=== PATIENT | male | born 1985 | race Caucasian/White ===

== ENCOUNTER 2018-05-23 12:03 | Observation (INO) | payer OTHER ==
[2018-05-23 12:19] LABS: #Lymphocytes 1.9 thou/uL (1.20-3.40); #Monocytes 0.2 thou/uL (0.11-0.59); #Neutrophils 6.4 thou/uL (1.40-6.50); %Basophils 0.3 % (0.0-1.0); %Eosinophils 0.5 % (0.0-10.0); %Lymphocytes 22.6 % (21.0-51.0); %Monocytes 1.9 % (0.0-10.0); %Neutrophils 74.6 % (42.0-75.0); Hemoglobin 14.6 g/dL (14.0-18.0); Mean Corpuscular HGB CONC 35.1 g/dL (32.0-36.0); Mean Corpuscular Hemoglobin 31.4 pg (27.0-31.0); Mean Corpuscular Volume 89.5 fL (78.0-98.0); Mean Platelet Volume 6.6 fL (7.4-10.4); Platelet Count 203 thou/uL (130-400); RBC Distribution Width 11.8 % (11.5-14.5); Red Blood Cell (RBC) Count 4.65 mill/uL (4.70-6.10); White Blood Cell (WBC) Count 8.5 thou/uL (4.8-10.8)
[2018-05-23 12:24] LABS: INR-International Normal Ratio 1.1; Prothrombin Time 13.9 SEC (12.0-14.7)
[2018-05-23 12:31] LABS: ALT (SGPT) 25 U/L (8-55); AST (SGOT) 22 U/L (5-34); Albumin 4.6 g/dL (3.5-5.0); Alkaline Phosphatase 56 U/L (40-150); Anion Gap 15 mmol/L (10-20); BUN (Urea Nitrogen) 22 mg/dL (8.9-20.6); Bilirubin, Total 0.9 mg/dL (0.2-1.2); Calc. Creatinine Clearance 0 mL/min (70-130); Calcium 9.1 mg/dL (7.8-10.44); Carbon Dioxide 16 mmol/L (22-29); Chloride 107 mmol/L (98-107); Estimated GFR-MDRD 67; Globulin 2.8 g/dL (2.4-3.5); Glucose 141 mg/dL (70-105); Potassium 3.4 mmol/L (3.5-5.1); Protein, Total 7.4 g/dL (6.0-8.3); Sodium 135 mmol/L (136-145)
[2018-05-23 12:35] LABS: CKMB 1.5 ng/mL (0-6.6); Troponin I Less than 0.010 ng/mL (< 0.028)
[2018-05-23 12:51] LABS: Acetaminophen Less than 6.0 mcg/mL (10.0-30.0); Alcohol Less than 10 mg/dL (Less than 10); Salicylate Less than 8.0 mg/dL (15.0-30.0)
[2018-05-23 12:57] LABS: Bilirubin Negative (Negative); Blood, Urine Negative (Negative); Clarity CLEAR (Clear); Glucose, Urine (Dipstick) Negative (Negative); Leukocyte Negative (Negative); Nitrite Negative (Negative); Protein, Urine (Dipstick) Negative (Neg-Trace); Specific Gravity, Urine 1.006 (1.002-1.036); Urobilinogen 0.2 mg/dL (0.2-1.0); pH, Urine 7.5 (5.0-9.0)
[2018-05-23 13:08] LABS: Amphetamine Not Detected (NotDetected); Barbiturates Screen Not Detected (NotDetected); Benzodiazepine Screen Not Detected (NotDetected); Cocaine Metabolite Screen Not Detected (NotDetected); Medtox Control Line Valid? VALID (VALID); Medtox Reader # READER 1; Methadone Not Detected (NotDetected); Methamphetamine Not Detected (NotDetected); Opiate Screen Not Detected (NotDetected); Oxycodone Screen Not Detected (NotDetected); Phencyclidine (PCP) Not Detected (NotDetected); THC/Cannabinoid Screen Not Detected (NotDetected); Tricyclic Screen Not Detected (NotDetected)
[2018-05-23] MEDS ORDERED: Metoclopramide HCl 10 MG/2 ML VIAL ONE (13:08)
--- NOTE | 2018-05-23 13:23 | CT ---
CT OF THE BRAIN WITHOUT CONTRAST: Date: 05/23/18 INDICATION: History of stroke. Patient last seen normal 2 hours ago, now with contusion, occasional ataxia, and i nappropriate speech responses. COMPARISON: None. FINDINGS: No acute infarct, hemorrhage, or hydrocephalus is present. Septum pellucidum and third ventricle are midline. Skull and extracranial soft tissues are unremarkable. IMPRESSION: No acute abnormality. Findings called to Dr. Camacho at 1212 hours on 05/23/18. CODE CR. POS: DANISHA
[2018-05-23] MEDS ORDERED: cloNIDine 0.1 MG TAB PO PRN (14:18)
[2018-05-23] MEDS ORDERED: Eucerin (Mineral Oil/Petrolatum,White) 30 gm Jar TOP PRN (14:18)
[2018-05-23] MEDS ORDERED: Zolpidem Tartrate 5 MG TAB PO PRN (14:18)
[2018-05-23] MEDS ORDERED: Sodium Chloride 0.65% Nasal 44 ML BOT EA NARE PRN (14:18)
[2018-05-23] MEDS ORDERED: Loratadine 10 MG TAB PO PRN (14:18)
[2018-05-23] MEDS ORDERED: hydrALAZINE 20 MG/ML VIAL SLOW IVP PRN (14:18)
[2018-05-23] MEDS ORDERED: Milk Of Magnesia 30 ML UDCUP PO PRN (14:18)
[2018-05-23] MEDS ORDERED: Ondansetron HCl/PF 4 MG/2 ML Vial IVP PRN (14:18)
[2018-05-23] MEDS ORDERED: Diabetic Tussin 200 MG/10 ML UDCUP PO PRN (14:18)
[2018-05-23] MEDS ORDERED: Ondansetron ODT 4 MG TAB PO PRN (14:18)
[2018-05-23] MEDS ORDERED: Senokot 8.6 MG TAB PO PRN (14:18)
[2018-05-23] MEDS ORDERED: Mag-Al 1200 mg/1200 mg/30 ML UDCUP PO PRN (14:18)
[2018-05-23] MEDS ORDERED: Loperamide HCl 2 MG CAP PO PRN (14:18)
[2018-05-23] MEDS ORDERED: Artificial Tear Sol 15 ML BOT EA EYE PRN (14:18)
[2018-05-23] MEDS ORDERED: Acetaminophen 325 MG TAB PO PRN (14:18)
[2018-05-23] MEDS ORDERED: Chloraseptic Spray 180 ml Bottle PO PRN (14:18)
--- NOTE | 2018-05-23 14:49 | HP ---
DATE OF ADMISSION: 05/23/2018 PRIMARY CARE PHYSICIAN: [facility] call admission. REASON FOR ADMISSION: Altered mental status. HISTORY OF PRESENT ILLNESS: This is a 32-year-old male who was at work. Around 10:00 this morning, the patient was having frontal headache. Per the patient, it was throbbing in nature. The patient was confused at the same time. As per coworker, the patient was repeating words at that time and he was not appropriately responding to questions. Per them, he was confused. He was repeating things and his communication was not making any sense. He was not able to use his phone, he was not recognizing people. He also reported tingling , numbness in his hand. He did not have any motor weakness. As per report, the patient had more pronounced facial droop on the right side. He did not have any nausea or vomiting. He did not have any double vision or blurred vision. The patient was not having any recall of that event. The patient was brought to ER with a stroke protocol. CT brain was negative for any acute intracranial process. The patient was also responding well in the emergency room. As per coworkers at workplace, the patient was taking deep breath and his pupils were dilated. The patient was very slow to recognize people including his . He was also not able to tell his date of . He was also having difficulty recognizing coworkers. Whenever they were trying to do NIH scale in the emergency room, he was not able to respond very well. Initially, NIH scale was 6. The patient did not have any motor weakness. He was given Reglan and IV fluid. At this point, we are admitting this patient on stroke floor for further evaluation. Family member reports that in March when they went to [place], at that time, he had first time headache in his life with a fever and that went away within 48 hours. At that time, they did not go to doctor's office. Before and after, he did not have any headache up until today. He never had this type of problem of confusion in past and he does not have any psychiatric problem. PAST MEDICAL HISTORY: Reviewed and negative. PAST PSYCHIATRIC HISTORY: Reviewed and negative. PAST SURGICAL HISTORY: Appendicectomy. SOCIAL HISTORY: The patient is and lives at home with his . He drinks alcohol socially. He denies any smoking. He denies any other illicit drug abuse. FAMILY HISTORY: No strong family history of premature coronary artery disease, stroke or cancer. ALLERGIES: No known drug allergy. CURRENT HOME MEDICATIONS: The patient is not taking any prescribed or non- prescribed medication. EMERGENCY ROOM COURSE: The patient was given Reglan and IV fluid. REVIEW OF SYSTEMS: The following complete review of systems was negative, unless otherwise mentioned in the HPI or below: Constitutional: Weight loss or gain, ability to conduct usual activities. Skin: Rash, itching. Eyes: Double vision, pain. ENT/Mouth: Nose bleeding, neck stiffness, pain, tenderness. Cardiovascular: Palpitations, dyspnea on exertion, orthopnea. Respiratory: Shortness of breath, wheezing, cough, hemoptysis, fever or night sweats. Gastrointestinal: Poor appetite, abdominal pain, heartburn, nausea, vomiting, constipation, or diarrhea. Genitourinary: Urgency, frequency, dysuria, nocturia. Musculoskeletal: Pain, swelling. Neurologic/Psychiatric: Anxiety, depression. Allergy/Immunologic: Skin rash, bleeding tendency. Please see my HPI for pertinent positive and negative. All other review of systems reviewed and negative except as mentioned in the HPI. PHYSICAL EXAMINATION: VITAL SIGNS: On arrival, blood pressure 141/83, pulse 105, respiratory rate 16 , temperature 97.8, saturation 100% on room air. Weight 88 kilograms. GENERAL: The patient is currently alert, awake, in no obvious acute distress. HEAD: Normocephalic, atraumatic. EYES: Pupils round and reactive to light. Extraocular muscles intact. ENT: Oropharynx within normal limits. Moist mucous membranes. No oral lesion , no pharyngeal erythema, no exudate. NECK: Supple. No JVD, no thyromegaly, no carotid bruit, no jugular venous distention. LUNGS: Clear to auscultation without any rhonchi or rales. CARDIAC: S1, S2 regular without any murmur. ABDOMEN: Soft, bowel sounds present, nontender, nondistended. No organomegaly , no mass, no suprapubic tenderness. BACK: Unremarkable. No CVA tenderness. EXTREMITIES: Upper extremities, passive movement of all joints are normal. Lower extremities, no edema. Good distal pulsation. SKIN: No skin rash. HEMATOLOGICAL: No lymphadenopathy. PSYCHIATRIC: Normal affect. NEUROLOGIC: Currently, the patient is alert, oriented x3. Cranial nerves II- XII intact. Motor 5/5 in all four limbs. Sensation bilaterally symmetrical. Reflexes bilaterally symmetrical. No cerebellar sign. Plantar bilateral flexor. Grossly nonfocal neurological examination. SIGNIFICANT LABORATORY DATA: CT brain based on my review, no acute intracranial process. CBC, WBC 8.5, hemoglobin 14.6, platelet 203,000. INR 1.1. BMP, sodium 135, potassium 3.4, chloride 107, carbon dioxide 16, anion gap 15, BUN 22, creatinine 1.26, glucose 141, calcium 9.1. LFT, AST 22, ALT 25 , alkaline phosphatase 56, albumin 4.6, ammonia 24. CK 223, CK-MB 1.5. Troponin I less than 0.010. TSH 0.79. Urinalysis, ketones trace. Urine drug screen negative. Serum drug screen negative. ASSESSMENT AND PLAN: 1. Transient altered mental status. At this point, differential diagnosis is complicated migraine, ? seizure, ? transient ischemic attack. The patient will require Neurology evaluation. We will need MRI brain, carotid Doppler and echocardiography for further evaluation. We will need cardiac monitor to rule out arrhythmia. Neuro check every 4 hourly. Management, we will defer to Neurology. 2. Mild hyponatremia, hypokalemia. We will continue with dextrose with NS with KCl IV fluid, 800 mL per hour. 3. Elevated total CK. We will do serial cardiac enzymes and we will repeat total CK level tomorrow. We will also check prolactin level. We will also check magnesium level and folate and B12 level. 4. Deep venous thrombosis prophylaxis not needed because we are expecting discharge in 24 hours. 5. Gastrointestinal prophylaxis, Pepcid 20 mg p.o. b.i.d. 6. Code status: The patient is full code. The patient's is surrogate decision maker. Disposition plan based on clinical course. MTDD
[2018-05-23 15:03] LABS: Actual Bicarbonate (HCO3a) 18.9 mEq/L (22-28); Base Excess (BEa) -4.4 mEq/L (-2.0 to +3.0); CO2 Tension 30.1 mmHg (35.0-45.0); Hemoglobin (Hb) 14.2 g/dL (14.0-18.0); O2 Tension (PaO2) 90.7 mmHg (80.0-100.0); pH, Arterial 7.42 (7.35-7.45)
[2018-05-23 15:04] LABS: ALV-art Gradient 21.405 (0-20); Analyzer IN Cardio ER; Carboxyhemoglobin (COHb) 0.1 gm% (0.0-3.0); Potassium - ABG Lab 3.9 mmol/L (3.70-5.30); Puncture Site RRA
--- NOTE | 2018-05-23 15:24 | ULT ---
CAROTID DUPLEX ULTRASOUND: DATE: 05/23/18 INDICATION: Altered mental status. FINDINGS: Peak systolic velocity in the right CCA was 143.4 cm/second and in the left was 160.3 cm/second. Peak systolic velocity in the right ICA was 78.7 cm/second and in the left was 76.4 cm/second. The right ICA/CCA ratio was 0.55 and the left was 0.48. Antegrade flow was seen within the vertebral arteries. IMPRESSION: No hemodynamically significant stenosis seen. POS: DANISHA
[2018-05-23 15:50] LABS: Folate (Folic Acid) 14.7 ng/mL (7.0-31.4)
[2018-05-23 16:41] VITALS: BMI 25.2
[2018-05-23] MEDS: D5 0.9% NS w/ 20 mEq KCl 1,000 ML IV SCH (17:58)
[2018-05-23 18:25] LABS: Troponin I Less than 0.010 ng/mL (< 0.028)
--- NOTE | 2018-05-23 19:26 | MRI ---
MRI BRAIN NONCONTRAST: DATE: 05-23-18 HISTORY: 32-year-old male with TIA, headache, and paraesthesia of bilateral hands. FINDINGS: The ventricles are normal in size and configuration. There is no major intraaxial signal abnormality , restricted diffusion, midline shift or any other mass effect, recent intraaxial hemorrhage, or extr aaxial fluid collection. The right maxillary sinus is asymmetrically small, and is diffusely filled w ith material that is uniformly T2 hyperintense, and T1 isointense relative to brain parenchyma, plus a center of T1 hyperintensity. IMPRESSION: 1. The brain is normal. 2. Totally opacified, small volume right maxillary sinus. jn POS: [facility]
[2018-05-23] MEDS: HYDROcodone/Acetaminophen 5/325 mg Tablet PO PRN (20:32)
[2018-05-23] MEDS: Famotidine 20 MG TAB PO SCH (20:32)
[2018-05-23 21:18] LABS: CKMB 0.9 ng/mL (0-6.6); Troponin I Less than 0.010 ng/mL (< 0.028)
[2018-05-24] MEDS: D5 0.9% NS w/ 20 mEq KCl 1,000 ML IV SCH (03:30)
[2018-05-24] MEDS: HYDROcodone/Acetaminophen 5/325 mg Tablet PO PRN ×2 (04:21→15:10)
[2018-05-24 04:41] LABS: #Lymphocytes 0.7 thou/uL (1.20-3.40); #Monocytes 0.3 thou/uL (0.11-0.59); #Neutrophils 4.4 thou/uL (1.40-6.50); %Basophils 0.2 % (0.0-1.0); %Eosinophils 0.4 % (0.0-10.0); %Lymphocytes 12.6 % (21.0-51.0); %Monocytes 6.1 % (0.0-10.0); %Neutrophils 80.7 % (42.0-75.0); Hemoglobin 13.2 g/dL (14.0-18.0); Mean Corpuscular HGB CONC 34.7 g/dL (32.0-36.0); Mean Corpuscular Hemoglobin 31.4 pg (27.0-31.0); Mean Corpuscular Volume 90.4 fL (78.0-98.0); Mean Platelet Volume 7.5 fL (7.4-10.4); Platelet Count 187 thou/uL (130-400); White Blood Cell (WBC) Count 5.5 thou/uL (4.8-10.8)
[2018-05-24 04:45] LABS: Anion Gap 14 mmol/L (10-20); BUN (Urea Nitrogen) 13 mg/dL (8.9-20.6); CK (CPK) 119 U/L (30-200); Calc. Creatinine Clearance 124 mL/min (70-130); Calcium 8.4 mg/dL (7.8-10.44); Carbon Dioxide 18 mmol/L (22-29); Cardiac Risk 3.2 (Less than 4.5); Chloride 111 mmol/L (98-107); Cholesterol 122 mg/dl (< 200 Desired); Estimated GFR-MDRD 81; Glucose 115 mg/dL (70-105); HDL Cholesterol 38 mg/dL (>60 Neg Risk); LDL Cholesterol, Calculated 75 mg/dL; Potassium 4.5 mmol/L (3.5-5.1); Sodium 138 mmol/L (136-145); Triglycerides 46 mg/dL (Less than 150)
--- NOTE | 2018-05-24 05:28 | CON ---
DATE OF CONSULTATION: 05/23/2018 CHIEF COMPLAINT: Altered mental status. 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 History was given mainly by his . He is generally healthy. He has had occasional headaches, but there is no pattern to it. The patient was in his usual state of health and was at work and did his rounds at 9:00 a.m. and around 9:30, he appeared confused. He was looking at his phone, did not know what it was, and he kept repeating the same sentences and he was also having communication issues and gibberish sometimes through this time. Per the ER note, there were some reports of tingling and numbness in the hand. The patient was having a frontal headache right before this occurred, has no weakness and per medical record, there was a facial droop on the right side. There is no history of any nausea or vomiting, but he did have some light sensitivity to his headache. No double vision or blurred vision. Stroke protocol was initiated. He was talking to his family members and his coworkers. CT head was negative. The patient was unable to name his children per his and they went on. Patient had a prior headache in March as well with fever which went away in 48 hours. The patient did not have any psychiatric issues such as anxiety or depression. PREVIOUS MEDICAL HISTORY: Generally healthy. 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 PAST SURGICAL HISTORY: Appendectomy. SOCIAL HISTORY: He is . 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 No smoking, no alcohol, no drug use. FAMILY HISTORY: Negative for any stroke or seizures. ALLERGIES: No known drug allergies. HOME MEDICATIONS: He takes meloxicam for shoulder pain p.r.n. REVIEW OF SYSTEMS: Pulmonary: No cough or shortness of breath. Gastrointestinal: No nausea, vomiting or diarrhea. Genitourinary: No dysuria or hematuria. Hematologic: No bleeding diatheses or anemia. Dermatologic: Negative for any rash. Neurologic: Positive for transient alteration of memory , headache, and numbness. Endocrine: Negative for thyroid dysfunction. LABORATORY DATA AND IMAGING: White count 8.5, hemoglobin 14.6, hematocrit 41.6 , platelets 203. Chemistry: Sodium 135, potassium 3.4, chloride 107, bicarbonate 16, BUN 22, creatinine 1.6, glucose 141 and CPK was 223. TSH 0.79. Urinalysis is negative. Urine tox screen is negative. CT of the head was negative. No acute intracranial abnormality was reported. MRI scan of the brain was normal. He has totally opacified small volume right maxillary sinus. Carotid Doppler was normal. No hemodynamically significant stenosis. PHYSICAL EXAMINATION: VITAL SIGNS: Blood pressure 134/62, pulse rate is 95, temperature 99.6, respiratory rate 16. GENERAL APPEARANCE: Well-built, well-nourished gentleman, who was lying in bed. is by his bedside. CHEST: Clear vesicular breathing. CARDIOVASCULAR: S1, S2 heard. No murmurs. ABDOMEN: Soft, nontender, no organomegaly noted. NEUROLOGIC: Higher intellectual functions. The patient is oriented to time, place and person. Cranial nerve examination: Normal pupillary reaction bilaterally. Normal extraocular movements. Normal visual borges by confrontation method. Normal sensation of face bilaterally. Normal strength of facial muscles bilaterally. Tongue midline, no atrophy noted. Normal hearing to finger rub bilaterally. Motor examination: Bulk normal, tone normal , strength 5/5 in upper and lower extremities in iliopsoas, hamstrings, quadriceps, ankle dorsiflexion, plantar flexion, deltoid, biceps, triceps, wrist extension and flexion, finger extension and flexion bilaterally. Deep tendon reflexes were 2+ throughout. Sensory: Normal touch, pinprick, proprioception, vibration bilaterally. Cerebellar: Normal [id number], heel to cardona. IMPRESSION: Patient is a 32-year-old man with history of confusion and loss of difficulty with speech including him talking in gibberish for a period of time, him not remembering the names of his kids, not remembering the events and this lasted approximately 6 hours. The patient is now back to baseline and his neurological examination is normal. The patient has normal MRI of the brain except for problems with his right maxillary sinus. Clinical diagnosis is most consistent with transient global amnesia. RECOMMENDATIONS: Please complete his workup including echocardiogram, monitor for any changes in neurological status. I will request EEG in a.m. I will also have Dr. Parker, follow up with you tomorrow and make sure patient's workup is completed. This is most likely sometimes related to migraine or unknown cause etiology. Thank you for the consultation request. GAGE
[2018-05-24 07:47] VITALS: TEMP 99
[2018-05-24] MEDS: Famotidine 20 MG TAB PO SCH (08:23)
[2018-05-24] MEDS ORDERED: Amoxicillin/Potassium Clav 875 MG TAB PO SCH (09:00)
[2018-05-24] MEDS ORDERED: Aspirin 81 mg Enteric Coated Tablet PO SCH (09:00)
--- NOTE | 2018-05-24 10:37 | PDOC.PN ---
- Subjective Encounter Start Date: 05/24/18 Encounter Start Time: 07:40 -: old records requested/rev Patient seen and examined. No new complaints. No overnight events has sinus headache, has low grade fever - Objective Resuscitation Status: Resuscitation Status FULL:Full Resuscitation MAR Reviewed: Yes Vital Signs & Weight: Vital Signs (12 hours) Temp Pulse Resp BP Pulse Ox 05/24/18 08:49 99.0 F 63 16 05/24/18 07:47 99.0 F 63 16 113/56 L 98 05/24/18 03:50 100.4 F H 76 16 119/57 L 96 05/24/18 00:00 99.0 F 84 16 118/58 L 97 Weight Weight 191 lb I&O: 05/23/18 05/24/18 05/25/18 06:59 06:59 06:59 Intake Total 3422 Balance 3422 Result Diagrams: 05/24/18 04:02 05/24/18 04:02 Radiology Reviewed by me: Yes (MRI, carotid US reviewed) EKG Reviewed by me: Yes (nsr) Phys Exam - Physical Examination Constitutional: NAD HEENT: PERRLA, moist MMs, sclera anicteric Neck: no JVD, supple Respiratory: no wheezing, no rales, no rhonchi Cardiovascular: RRR, no significant murmur, no rub Gastrointestinal: soft, non-tender, no distention, positive bowel sounds Musculoskeletal: no edema, pulses present Neurological: non-focal, normal sensation, moves all 4 limbs Psychiatric: normal affect, A&O x 3 Skin: no rash, normal turgor Dx/Plan (1) Opacified maxillary sinus Code(s): R93.0 - ABNORMAL FINDINGS ON DX IMAGING OF SKULL AND HEAD, NEC Status : Acute (2) Transient global amnesia Code(s): G45.4 - TRANSIENT GLOBAL AMNESIA Status: Acute - Plan cont current plan of care, plan discussed w/ family, continue antibiotics * start augmentin * lipitor and aspirin on discharge * medication reviewed as below * symptomatic treatment * EEG and echo pending Review of Systems - Review of Systems Eyes: negative: Pain, Vision Change, Conjunctivae Inflammation, Eyelid Inflammation, Redness, Other ENT: negative: Ear Pain, Ear Discharge, Nose Pain, Nose Discharge, Nose Congestion, Mouth Pain, Mouth Swelling, Throat Pain, Throat Swelling, Other Respiratory: negative: Cough, Dry, Shortness of Breath, Hemoptysis, SOB with Excertion, Pleuritic Pain, Sputum, Wheezing Cardiovascular: negative: chest pain, palpitations, orthopnea, paroxysmal nocturnal dyspnea, edema, light headedness, other Gastrointestinal: negative: Nausea, Vomiting, Abdominal Pain, Diarrhea, Constipation, Melena, Hematochezia, Other Genitourinary: negative: Dysuria, Frequency, Incontinence, Hematuria, Retention , Other Musculoskeletal: negative: Neck Pain, Shoulder Pain, Arm Pain, Back Pain, Hand Pain, Leg Pain, Foot Pain, Other Skin: negative: Rash, Lesions, Pato, Bruising, Other - Medications/Allergies Allergies/Adverse Reactions: Allergies Allergy/AdvReac Type Severity Reaction Status Date / Time No Known Drug Allergies Allergy Verified 05/23/18 17:42 Medications: Current Medications Acetaminophen (Tylenol) 650 mg PO Q4H PRN PRN Reason: Headache/Fever or Pain Last Admin: 05/24/18 04:21 Dose: 650 mg Hydrocodone Bitart/Acetaminophen (Mccarley 5/325) 1 tab PO Q4H PRN PRN Reason: Moderate Pain (4-6) Last Admin: 05/24/18 04:21 Dose: 1 tab Al Hydroxide/Mg Hydroxide (Maalox) 30 ml PO Q6H PRN PRN Reason: Heartburn or Indigestion Amoxicillin/Clavulanate Potassium (Augmentin) 875 mg PO Q12HR [facility] Last Admin: 05/24/18 08:23 Dose: 875 mg Artificial Tears (Tears Renewed 15ml Bottle) 0 drop EA EYE PRN PRN PRN Reason: Dry Eyes Aspirin (Ecotrin) 81 mg PO DAILY [facility] Last Admin: 05/24/18 08:23 Dose: 81 mg Atorvastatin Calcium (Lipitor) 10 mg PO HS [facility] Clonidine (Catapres) 0.1 mg PO Q4H PRN PRN Reason: Systolic BP > 180 Famotidine (Pepcid) 20 mg PO BID [facility] Last Admin: 05/24/18 08:23 Dose: 20 mg Guaifenesin (Robitussin Sf) 200 mg PO Q4H PRN PRN Reason: Cough Hydralazine HCl (Apresoline) 10 mg SLOW IVP Q4H PRN PRN Reason: Systolic BP > 180 Loperamide HCl (Imodium) 2 mg PO PRN PRN PRN Reason: Diarrhea/Loose Stools Loratadine (Claritin) 10 mg PO DAILYPRN PRN PRN Reason: Sinus Symptoms Magnesium Hydroxide (Milk Of Magnesium) 30 ml PO DAILYPRN PRN PRN Reason: Constipation Mineral Oil/White Petrolatum (Eucerin Cream) 0 gm TOP BIDPRN PRN PRN Reason: Dry Skin Ondansetron HCl (Zofran Odt) 4 mg PO Q6H PRN PRN Reason: Nausea/Vomiting Ondansetron HCl (Zofran) 4 mg IVP Q6H PRN PRN Reason: Nausea/Vomiting Phenol (Chloraseptic [place] 180 Ml Bot) 0 ml PO PRN PRN PRN Reason: Sore Throat Senna (Senokot) 2 tab PO HSPRN PRN PRN Reason: Constipation Sodium Chloride (Mclennan Nasal [place] 0.65%) 0 ml EA NARE QIDPRN PRN PRN Reason: Nasal Congestion Sodium Chloride (Flush - Normal Saline) 10 ml IVF Q12HR RAFAELA Sodium Chloride (Flush - Normal Saline) 10 ml IVF PRN PRN PRN Reason: Saline Flush Zolpidem Tartrate (Ambien) 5 mg PO HSPRN PRN PRN Reason: Insomnia
[2018-05-24 11:42] VITALS: BP 118/57
--- NOTE | 2018-05-24 12:18 | DIS ---
PRIMARY CARE PHYSICIAN: Dr. Asif Luo DATE OF ADMISSION: 05/23/2018 DATE OF DISCHARGE 05/24/2018 DISCHARGE DISPOSITION: Home. PRIMARY DISCHARGE DIAGNOSES: 1. Transient global amnesia. 2. Acute maxillary sinusitis. SECONDARY DISCHARGE DIAGNOSIS: None. PRIMARY PROCEDURE/OPERATION: None. RADIOLOGICAL INVESTIGATION: CT brain normal. MRI brain normal. Carotid Doppler normal. MRI brain showed maxillary opacification. SIGNIFICANT LABORATORY DATA: Hemoglobin 13.2, WBC 5.5, platelet 187. INR 1.1. Sodium 138, creatini ne 1.06, LDL 75. Cardiac enzymes negative. Vitamin B12, folate, homocysteine, TSH, ammonia and CK l evel normal. LFT normal. Urinalysis normal. Blood culture negative. DISCHARGE MEDICATIONS: Aspirin 81 mg p.o. daily, Lipitor 10 mg p.o. daily, Augmentin 875 mg p.o. b.i .d. for 7 days. CONTRAINDICATIONS: The patient is not given any blood pressure medication because his blood pressure without blood pressure medication remains normal. TEST RESULTS PENDING ON DISCHARGE: EEG and echocardiography. DISCHARGE PLAN: Post hospital, the patient will follow up with primary care physician as well as preston rologist as instructed. HOSPITAL COURSE: A 32-year-old male who had episode of transient global amnesia. Please see my HPI for further detail. The patient was evaluated by Neurology and they made a diagnosis of transient gl obal amnesia. Please see their consult note as well. During this admission, CT brain was normal. C arotid Doppler was normal. MRI brain was also normal, but it did show maxillary sinus opacification and that is why we started Augmentin. Retrospectively, we are thinking that the patient's headache is related with sinus headache and his e pisode happened at work place, it was related with transient global amnesia. EEG ordered by Neurology is pending and echocardiography is pending. The patient is seen and examined at bedside today. Please see my progress note from today for furthe r details.
[2018-05-24] MEDS ORDERED: Atorvastatin Calcium 10 MG TAB PO SCH (21:00)
--- NOTE | 2018-05-25 10:26 | EEG ---
Referring Physician: DR. Chandrakant WALLS EEG # [id number] TEST TYPE: ROUTINE PORTABLE INPATIENT REPORT: AN EEG USING THE INTERNATIONAL TEN-TWENTY SYSTEM OF ELECTRODE PLACEMENT WAS PERFORMED. The waking background is a 9-10 hertz Alpha frequency. The patient remained awake throughout the study. Photic stimulation and hyperventilation were unremarkable. No epileptiform features were seen. IMPRESSION: THIS IS A NORMAL AWAKE EEG. 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
--- NOTE | 2018-05-29 20:13 | EKG ---
Test Reason : POSSIBLE STROKE Blood Pressure : / mmHG Vent. Rate : 097 BPM Atrial Rate : 097 BPM P-R Int : 160 ms QRS Dur : 102 ms QT Int : 384 ms P-R-T Axes : 074 075 027 degrees QTc Int : 487 ms Normal sinus rhythm Incomplete right bundle branch block Prolonged QT Abnormal ECG Confirmed by ISSAC BOURGEOIS ([id number]), market editor ELOINA WALDROP ([id number]) on 05/29/2018 8:13:20 PM Referred By: Confirmed By:ISSAC BOURGEOIS
== END 2018-05-24 15:52 | disposition home or self-care (01) ==
LOC: ERS 12:03 → 2SE 14:02
PROVIDERS: ADMIT Internal Medicine; ATTEND Internal Medicine
DX: R41.82 Altered mental status, unspecified (principal); G45.4 Transient global amnesia; J01.00 Acute maxillary sinusitis, unspecified; E87.1 Hypo-osmolality and hyponatremia; R93.0 Abnormal findings on diagnostic imaging of skull and head, not elsewhere classified
CPT/HCPCS: 36415; 70450; 70551; 80048; 80053; 80061; 80306; 80307; 81003; 82140; 82550; 82553; 82607; 82746; 82805; 83090; 83735; 84443; 84484; 85025; 85610; 85730; 87040; 93005; 93306; 93880; 95816; 95819; 96361; 96365; G0378; J2765